=== PATIENT | female | born 1935 | race Caucasian/White ===

== ENCOUNTER 2016-10-06 10:54 | Inpatient (IN) | payer OTHER ==
[~2016-10-06] VITALS: Ht 170.2 cm; Wt 72.6 kg
[~2016-10-06 10:54] MED LIST: ASPI-1063 PO; ATEN-41 PO; GLIP2.5T3 PO; INDA2.5T5 PO; LISI-600 PO; LOVA20TA2 PO; METF-510 PO; SYN75 PO
[2016-10-06 11:08] VITALS: BP 143/86; PULSE 87; RESP 15; TEMP 98; O2SAT 99
[2016-10-06] MEDS ORDERED: NS 500 ML IV SCH (11:40)
[2016-10-06 12:05] LABS: BASOPHILS % (AUTO) 0.2 % (0.0-2.0); EOSINOPHILS % (AUTO) 0.1 % (0.0-4.0); HEMOGLOBIN 12.8 g/dL (12.0-16.0); LYMPHOCYTES # (AUTO) 1.1 K/uL (1.0-5.5); LYMPHOCYTES % (AUTO) 14.8 % (20.5-51.5); MEAN CORPUSCULAR HEMOGLOBIN 32 pg (27-31); MEAN CORPUSCULAR HGB CONC 35 % (32-36); MEAN CORPUSCULAR VOLUME 93 fL (79.0-98.0); MONOCYTES # (AUTO) 0.3 K/uL (0.0-1.0); MONOCYTES % (AUTO) 4.1 % (1.7-9.3); NEUTROPHILS # (AUTO) 6.3 K/uL (1.8-7.7); NEUTROPHILS % (AUTO) 80.8 % (40.0-70.0); PLATELET COUNT (AUTO) 238 K/uL (130-430); RED BLOOD CELL COUNT(AUTO) 3.97 MIL/uL (4.2-6.2); RED CELL DISTRIBUTION WIDTH 13.4 % (9.0-15.0); WHITE BLOOD COUNT (AUTO) 7.7 K/uL (4.8-10.8)
[2016-10-06 12:17] LABS: ANION GAP 9 (5-15); CALCIUM 9.2 mg/dL (8.4-11.0); CHLORIDE 97 mmol/L (98-107); CREATININE 1.12 mg/dL (0.55-1.30); GLUCOSE 307 mg/dL (70-99); POTASSIUM 4.1 mmol/L (3.5-5.1); SODIUM SERUM 134 mmol/L (136-145); UREA NITROGEN, BLOOD 19 mg/dL (8-21)
[2016-10-06 12:25] LABS: ALANINE AMINOTRANSFERASE 16 U/L (12-78); ALBUMIN 3.7 g/dL (3.4-4.8); ASPARTATE AMINOTRANSFERASE 15 U/L (10-37); TOTAL BILIRUBIN 0.6 mg/dL (0.0-1.0); TOTAL PROTEIN, SERUM 8.1 g/dL (6.4-8.3)
[2016-10-06] MEDS: 0.45% NACL 1,000 ML IV SCH (13:45)
[2016-10-06 16:00] VITALS: BP 128/54; PULSE 94; RESP 18; TEMP 97.1; O2SAT 96
[2016-10-06] MEDS ORDERED: GLUCOSE 15 GM GEL (in 37.5 GM TUBE) PO PRN ×2 (16:15)
[2016-10-06] MEDS ORDERED: DEXTROSE 50%-WATER 50 ML DISP.SYRIN IVP PRN ×2 (16:15)
[2016-10-06 17:21] LABS: HEMATOCRIT 34.5 % (36-48); HEMOGLOBIN 11.9 g/dL (12.0-16.0)
[2016-10-06 20:00] VITALS: BP 148/82; PULSE 74; RESP 18; TEMP 99; O2SAT 96
[2016-10-06] MEDS ORDERED: INSULIN REGULAR, HUMAN 100 UNITS/ML, 10 ML VIAL (novoLIN R) SUBCUT PRN (20:15)
[2016-10-06] MEDS: SIMVASTATIN 10 MG TABLET PO SCH (20:57)
[2016-10-06] MEDS: INSULIN ASPART 100 UNITS/ML, 10 ML VIAL (NovoLOG) SUBCUT PRN (20:59)
[2016-10-06] MEDS: PANTOPRAZOLE SODIUM 40 MG/VIAL (PROTONIX) IVP SCH (21:49)
[2016-10-06] MEDS ORDERED: BISACODYL 5 MG TABLET.DR (DULCOLAX) PO ONE (22:45)
[2016-10-06] MEDS ORDERED: GOLYTELY / COLYTE SOLUTION 4 LITERS PO ONE (22:45)
[2016-10-06] MEDS ORDERED: MAGNESIUM CITRATE 300 ML ORAL SOLUTION PO ONE (23:15)
[2016-10-06] MEDS ORDERED: POLYETHYLENE GLYCOL 3350, 17 GM/ POWD.PACK PO SCH (23:15)
[2016-10-07] VITALS (7 sets, daily range): BP systolic 134–176; BP diastolic 70–102; PULSE 73–155; RESP 16–20; TEMP 97.3–98.8; O2SAT 95–98
[2016-10-07] MEDS ORDERED: SORBITOL 70% SOLUTION, 30 ML UDBTL PO SCH
[2016-10-07] MEDS ORDERED: GOLYTELY / COLYTE SOLUTION 4 LITERS PO ONE ×2 (00:45→18:00)
[2016-10-07] MEDS: 0.45% NACL 1,000 ML IV SCH ×2 (05:31→16:13)
[2016-10-07] MEDS: LEVOTHYROXINE SODIUM 0.075 MG TABLET PO SCH (06:22)
[2016-10-07] MEDS: INSULIN ASPART 100 UNITS/ML, 10 ML VIAL (NovoLOG) SUBCUT PRN ×2 (06:39→21:08)
[2016-10-07] MEDS: PANTOPRAZOLE SODIUM 40 MG/VIAL (PROTONIX) IVP SCH ×2 (08:22→23:36)
[2016-10-07 08:23] LABS: ANION GAP 7 (5-15); CALCIUM 8.7 mg/dL (8.4-11.0); CHLORIDE 99 mmol/L (98-107); CREATININE 0.89 mg/dL (0.55-1.30); GLUCOSE 249 mg/dL (70-99); POTASSIUM 3.4 mmol/L (3.5-5.1); SODIUM SERUM 137 mmol/L (136-145); UREA NITROGEN, BLOOD 13 mg/dL (8-21)
[2016-10-07 08:27] LABS: INR 1.1 (0.8-1.2); PROTHROMBIN TIME 11.7 SECS (9.5-12.5)
[2016-10-07] MEDS ORDERED: hydrALAZINE HCL 20 MG/ML VIAL IVP PRN (08:30)
[2016-10-07] MEDS: ATENOLOL 25 MG TABLET(TENORMIN) PO SCH (08:52)
[2016-10-07] MEDS: LISINOPRIL 20 MG TABLET PO SCH (08:52)
[2016-10-07] MEDS ORDERED: COMMUNICATION ORDER XX ONE (10:15)
[2016-10-07] MEDS ORDERED: KCL 20 mEq in 100 mL (PREMIX) 100 ML IV ONE (10:15)
[2016-10-07] MEDS ORDERED: POTASSIUM CHLORIDE 10 MEQ TAB.PRT.SR PO ONE (10:30)
[2016-10-07] MEDS ORDERED: MIDAZOLAM HCL 5 MG/5 ML VIAL ONE (11:00)
[2016-10-07] MEDS ORDERED: SIMETHICONE 40 MG/0.6 ML ML ONE (11:01)
[2016-10-07] MEDS: MIDAZOLAM HCL 5 MG/5 ML VIAL ONE ×5 (11:15→11:29)
[2016-10-07] MEDS: fentaNYL CITRATE/PF 100 MCG/2 ML AMP ONE ×4 (11:15→11:27)
[2016-10-07 16:36] LABS: HEMATOCRIT 32.2 % (36-48)
[2016-10-07] MEDS ORDERED: BISACODYL 5 MG TABLET.DR (DULCOLAX) PO ONE (17:00)
[2016-10-07] MEDS: SIMVASTATIN 10 MG TABLET PO SCH (21:05)
[2016-10-07] MEDS ORDERED: ATENOLOL 25 MG TABLET(TENORMIN) PO ONE (22:00)
[2016-10-07] MEDS ORDERED: ACETAMINOPHEN 325 MG TABLET PO PRN (22:00)
[2016-10-07] MEDS ORDERED: CARV6.2554 PO (22:35)
[2016-10-07] MEDS ORDERED: LEVO88TA5 PO (22:35)
[2016-10-08] VITALS: BP 128/76; PULSE 64; RESP 21; TEMP 98.9; O2SAT 95
[2016-10-08 04:46] VITALS: BP 146/83; PULSE 61; RESP 18; TEMP 97.4; O2SAT 97
[2016-10-08] MEDS: 0.45% NACL 1,000 ML IV SCH ×2 (05:45→12:29)
[2016-10-08] MEDS: LEVOTHYROXINE SODIUM 0.075 MG TABLET PO SCH (06:13)
[2016-10-08] MEDS: INSULIN ASPART 100 UNITS/ML, 10 ML VIAL (NovoLOG) SUBCUT PRN ×4 (06:14→21:32)
[2016-10-08 07:25] LABS: BASOPHILS % (AUTO) 0.4 % (0.0-2.0); EOSINOPHILS % (AUTO) 0.4 % (0.0-4.0); HEMATOCRIT 33.2 % (36-48); HEMOGLOBIN 11.2 g/dL (12.0-16.0); LYMPHOCYTES # (AUTO) 1.7 K/uL (1.0-5.5); LYMPHOCYTES % (AUTO) 23.5 % (20.5-51.5); MEAN CORPUSCULAR HEMOGLOBIN 32 pg (27-31); MEAN CORPUSCULAR HGB CONC 34 % (32-36); MEAN CORPUSCULAR VOLUME 95 fL (79.0-98.0); MONOCYTES # (AUTO) 0.6 K/uL (0.0-1.0); MONOCYTES % (AUTO) 8.4 % (1.7-9.3); NEUTROPHILS # (AUTO) 4.8 K/uL (1.8-7.7); NEUTROPHILS % (AUTO) 67.3 % (40.0-70.0); PLATELET COUNT (AUTO) 212 K/uL (130-430); RED BLOOD CELL COUNT(AUTO) 3.52 MIL/uL (4.2-6.2); RED CELL DISTRIBUTION WIDTH 13.5 % (9.0-15.0); WHITE BLOOD COUNT (AUTO) 7.1 K/uL (4.8-10.8)
[2016-10-08 07:38] LABS: ANION GAP 7 (5-15); CALCIUM 9.1 mg/dL (8.4-11.0); CHLORIDE 101 mmol/L (98-107); CREATININE 0.98 mg/dL (0.55-1.30); GLUCOSE 179 mg/dL (70-99); POTASSIUM 3.6 mmol/L (3.5-5.1); SODIUM SERUM 139 mmol/L (136-145); UREA NITROGEN, BLOOD 10 mg/dL (8-21)
[2016-10-08] MEDS: ATENOLOL 25 MG TABLET(TENORMIN) PO SCH (09:00)
[2016-10-08] MEDS: PANTOPRAZOLE SODIUM 40 MG/VIAL (PROTONIX) IVP SCH (09:05)
[2016-10-08] MEDS: LISINOPRIL 20 MG TABLET PO SCH (11:52)
[2016-10-08 12:00] VITALS: BP 149/76; PULSE 62; RESP 16; TEMP 97.8; O2SAT 95
[2016-10-08 16:00] VITALS: BP 144/81; PULSE 54; RESP 18; TEMP 97.1; O2SAT 96
[2016-10-08 16:05] LABS: HEMATOCRIT 31.1 % (36-48); HEMOGLOBIN 10.4 g/dL (12.0-16.0)
[2016-10-08] MEDS: CLARITHROMYCIN 500 MG TABLET PO SCH (21:19)
[2016-10-08] MEDS: PANTOPRAZOLE SODIUM 40 MG TAB PO SCH (21:20)
[2016-10-08] MEDS: SIMVASTATIN 10 MG TABLET PO SCH (21:21)
[2016-10-08] MEDS: CARVEDILOL 6.25 MG TABLET (COREG) PO SCH (21:21)
[2016-10-09 01:12] VITALS: BP 132/63; PULSE 66; RESP 18; TEMP 98; O2SAT 97
[2016-10-09] MEDS: 0.45% NACL 1,000 ML IV SCH (02:31)
[2016-10-09 06:05] VITALS: BP 150/74; PULSE 65; RESP 20; TEMP 98.6; O2SAT 96
[2016-10-09] MEDS ORDERED: LEVOTHYROXINE SODIUM 0.088 MG TABLET PO SCH (07:00)
[2016-10-09] MEDS: LEVOTHYROXINE SODIUM 0.075 MG TABLET PO SCH (07:00)
[2016-10-09] MEDS: INSULIN ASPART 100 UNITS/ML, 10 ML VIAL (NovoLOG) SUBCUT PRN ×2 (07:02→12:21)
[2016-10-09 07:39] LABS: HEMATOCRIT 31.9 % (36-48); HEMOGLOBIN 10.8 g/dL (12.0-16.0)
[2016-10-09] MEDS: PANTOPRAZOLE SODIUM 40 MG TAB PO SCH (09:59)
[2016-10-09] MEDS: CLARITHROMYCIN 500 MG TABLET PO SCH (09:59)
[2016-10-09] MEDS: CARVEDILOL 6.25 MG TABLET (COREG) PO SCH (09:59)
[2016-10-09] MEDS: LISINOPRIL 20 MG TABLET PO SCH (10:00)
[2016-10-09 12:00] VITALS: BP 132/75; PULSE 74; RESP 21; TEMP 97.3; O2SAT 96
[2016-10-09 13:44] VITALS: BP 130/68; PULSE 78; RESP 20; TEMP 98.6; O2SAT 98
== END 2016-10-09 14:55 | disposition home or self-care (01) | DRG 378 ==
LOC: SED 10:54 → STU 13:32 → SMU 10-08 11:56
PROVIDERS: ADMIT Internal Medicine; ATTEND Internal Medicine
PROC: 0DB98ZX Excision of Duodenum, Via Natural or Artificial Opening Endoscopic, Diagnostic (ICD-10-PCS; principal; 2016-10-06)
PROC: 0DB68ZX Excision of Stomach, Via Natural or Artificial Opening Endoscopic, Diagnostic (ICD-10-PCS; 2016-10-06)
PROC: BD14YZZ Fluoroscopy of Colon using Other Contrast (ICD-10-PCS; 2016-10-06)
DX: K57.93 Diverticulitis of intestine, part unspecified, without perforation or abscess with bleeding (principal); D68.69 Other thrombophilia; K29.40 Chronic atrophic gastritis without bleeding; I48.91 Unspecified atrial fibrillation; E11.9 Type 2 diabetes mellitus without complications; I10 Essential (primary) hypertension; E78.5 Hyperlipidemia, unspecified; B96.81 Helicobacter pylori [H. pylori] as the cause of diseases classified elsewhere; D64.9 Anemia, unspecified; E03.9 Hypothyroidism, unspecified; Z66 Do not resuscitate; Z82.3 Family history of stroke; Z80.0 Family history of malignant neoplasm of digestive organs; Z90.49 Acquired absence of other specified parts of digestive tract; Z88.0 Allergy status to penicillin; Z88.6 Allergy status to analgesic agent; Z88.1 Allergy status to other antibiotic agents; Z88.2 Allergy status to sulfonamides; Z79.82 Long term (current) use of aspirin; Z79.899 Other long term (current) drug therapy; T50.995A Adverse effect of other drugs, medicaments and biological substances, initial encounter
CPT/HCPCS: 36415; 43239; 74270-TC; 78278-TC; 80048; 80053; 82272; 82962; 85018-TC; 85025; 85610-TC; 85730-TC; 86886; 86900; 86901; 87081; 88305; 88312; 93005; 99291; A9560; C9113; J0360; J2250; J3010; J3480

== ENCOUNTER 2016-11-05 10:49 | Inpatient (IN) | payer OTHER ==
[~2016-11-05] VITALS: Ht 170.2 cm; Wt 69.9 kg
[~2016-11-05 10:49] MED LIST changes: +CARV6.2554 PO; +LEVO88TA5 PO
[2016-11-05 10:51] VITALS: BP 116/63; PULSE 85; RESP 18; TEMP 97.7; O2SAT 96
--- NOTE | 2016-11-05 10:59 | NUR ---
Pt placed to ER bed 02 and to gown. Pt report given to BRIEN Arzola.
--- NOTE | 2016-11-05 11:05 | NUR ---
Pt placed to ER bed 06.
--- NOTE | 2016-11-05 11:06 | NUR ---
Patient in stable condition, alert and oriented x4. States that has had right posterior rib pain and neck soreness for four days. Full range of motion noted to neck. Denies photophobia or headache. Denies nausea vomiting. Denies trauma/injury. No other complaints/injuries per patient or noted.
--- NOTE | 2016-11-05 11:35 | NUR ---
Dr. Rico at bedside
[2016-11-05 12:11] LABS: BASOPHILS % (AUTO) 0.2 % (0.0-2.0); EOSINOPHILS % (AUTO) 0.1 % (0.0-4.0); HEMATOCRIT 33.8 % (36-48); HEMOGLOBIN 11.5 g/dL (12.0-16.0); LYMPHOCYTES # (AUTO) 1.2 K/uL (1.0-5.5); LYMPHOCYTES % (AUTO) 13.5 % (20.5-51.5); MEAN CORPUSCULAR HEMOGLOBIN 31 pg (27-31); MEAN CORPUSCULAR HGB CONC 34 % (32-36); MEAN CORPUSCULAR VOLUME 92 fL (79.0-98.0); MONOCYTES # (AUTO) 0.4 K/uL (0.0-1.0); MONOCYTES % (AUTO) 4.8 % (1.7-9.3); NEUTROPHILS # (AUTO) 7.3 K/uL (1.8-7.7); NEUTROPHILS % (AUTO) 81.4 % (40.0-70.0); PLATELET COUNT (AUTO) 298 K/uL (130-430); RED BLOOD CELL COUNT(AUTO) 3.68 MIL/uL (4.2-6.2); RED CELL DISTRIBUTION WIDTH 12.7 % (9.0-15.0); WHITE BLOOD COUNT (AUTO) 8.9 K/uL (4.8-10.8)
[2016-11-05 12:21] LABS: BILIRUBIN,URINE NEGATIVE (NEGATIVE); BLOOD, URINE 1+ (NEGATIVE); COLOR,URINE YELLOW (YELLOW); GLUCOSE,URINE 2+ (NEGATIVE); KETONES,URINE NEGATIVE (NEGATIVE); LEUKOCYTE ESTERASE ,URINE NEGATIVE (NEGATIVE); NITRITE, URINE NEGATIVE (NEGATIVE); PROTEIN URINE 2+ (NEGATIVE); UROBILINOGEN,URINE 0.2 (0.2-1.0)
[2016-11-05 12:22] LABS: PROTHROMBIN TIME 11.2 SECS (9.5-12.5)
[2016-11-05 12:24] LABS: ANION GAP 11 (5-15); CALCIUM 9.3 mg/dL (8.4-11.0); CHLORIDE 96 mmol/L (98-107); CREATININE 1.63 mg/dL (0.55-1.30); POTASSIUM 3.7 mmol/L (3.5-5.1); SODIUM SERUM 133 mmol/L (136-145); UREA NITROGEN, BLOOD 31 mg/dL (8-21)
[2016-11-05 12:24] LABS: CLARITY/URINE SLIGHTLY HAZY (CLEAR)
[2016-11-05 12:30] LABS: GLUCOSE 466 mg/dL (70-99)
[2016-11-05 12:35] LABS: TOTAL BILIRUBIN 0.4 mg/dL (0.0-1.0)
[2016-11-05 12:36] LABS: ALANINE AMINOTRANSFERASE 17 U/L (12-78); ALBUMIN 3.7 g/dL (3.4-4.8); ASPARTATE AMINOTRANSFERASE 11 U/L (10-37); TOTAL PROTEIN, SERUM 7.8 g/dL (6.4-8.3)
[2016-11-05 12:56] LABS: BACTERIA,URINE RARE /HPF (None Seen); MUCUS,URINE 1+ /LPF (None Seen); WBC,URINE 0-3 /HPF (0-3)
--- NOTE | 2016-11-05 13:00 | NUR ---
Patient in stable condition, no chest pain, pressure or radiating pain per patient.
[2016-11-05] MEDS ORDERED: IBUPROFEN 600 MG TABLET PO ONE (13:15)
--- NOTE | 2016-11-05 13:25 | NUR ---
Suzanne to in [facility] - 11/05/16 at 1550 by PENNY No medications for blood sugar at this time per
--- NOTE | 2016-11-05 13:26 | NUR ---
Medication reconciliation completed with information provided by patient. Any prior medication reconciliation on file was reviewed and corrected.
[2016-11-05] MEDS ORDERED: INSULIN REGULAR, HUMAN 10 UNITS/0.1 ML INJ IVP ONE (13:30)
[2016-11-05] MEDS ORDERED: POTASSIUM CHLORIDE 20 MEQ TAB.PRT.SR PO ONE (13:30)
[2016-11-05] MEDS ORDERED: MORPHINE 2 MG/ML INJ. SYRINGE IVP PRN ×2 (13:45→20:15)
[2016-11-05] MEDS ORDERED: HYDROcodone/ACETAMIN 10-325 MG TAB PO PRN (13:45)
[2016-11-05] MEDS ORDERED: ONDANSETRON HCL 4 MG/2 ML VIAL IVP PRN (13:45)
[2016-11-05] MEDS ORDERED: ACETAMINOPHEN 325 MG TABLET PO PRN (13:45)
[2016-11-05] MEDS ORDERED: MAGNESIUM CITRATE 300 ML ORAL SOLUTION PO ONE (13:45)
--- NOTE | 2016-11-05 13:50 | NUR ---
# 20 gauge angiocath placed to R FA. Use of asceptic technique. Opsite placed over site. Blood return noted. Flushed with 10 cc of normal saline. No evidence of infiltration noted. Patient tolerated well.
[2016-11-05] MEDS ORDERED: ASPIRIN 81 MG TAB.CHEW PO ONE ×2 (15:00→16:00)
--- NOTE | 2016-11-05 15:00 | NUR ---
2d echo being completed at bedside
--- NOTE | 2016-11-05 15:30 | NUR ---
Admitted to tele unit. Will go to room 116A. Summary report printed. Report given to Cecile TESFAYE at bedside.
--- NOTE | 2016-11-05 15:31 | NUR ---
ADMISSION NOTE Received patient from ER via gurney. Patient admitted with diagnosis of Elevated troponin . Patient is awake, alert, oriented X 4. Patient oriented to hospital room, call light, toileting, pain management and safety-teach back done. Patient informed that Lorie will be her nurse and that their room number is 116A. Personal belongings checked and Belongings List documented. Call light within reach.
[2016-11-05] MEDS: NACL 0.9% 1,000 ML IV SCH ×2 (15:44→16:28)
[2016-11-05 16:20] VITALS: BP 131/63; PULSE 80; RESP 19; TEMP 97; O2SAT 96
[2016-11-05] MEDS: LACTULOSE 20 GM/30 ML UDC PO SCH ×2 (16:27→17:00)
--- NOTE | 2016-11-05 16:30 | NUR ---
PT SITTING IN BED, FAMILY AT BEDSIDE, NO S/S OF DISTRESS OR DISCOMFORT AT THIS TIME, PT NEEDS ATTENDED TO, CALL LIGHT WITHIN REACH, BED IN LOW POSITION, WILL FOLLOW UP.
[2016-11-05] MEDS: INSULIN NPH 100 UNITS/ML 10 ML VIAL SUBCUT SCH (16:50)
[2016-11-05] MEDS: INSULIN ASPART 100 UNITS/ML, 10 ML VIAL (NovoLOG) SUBCUT PRN ×2 (16:51→20:58)
--- NOTE | 2016-11-05 18:30 | NUR ---
CLOSING NOTE PT SITTING IN BED, COMPLAINS OF PAIN AT NECK AREA AND BACK, OFFERED PRN PAIN MEDICATION NORCO AND TYLENOL, PT REFUSED. PT A/O X4, STEADY GAIT NOTED BUT COMPLAINS OF FEELING WEAK. IV TO RIGHT AC, PATIENT, NO S/S OF INFILTRATION. BED IN LOW POSITION, SAFETY MEASURES IN PLACE, WILL ENDORSE CARE TO FOLLOWING SHIFT.
--- NOTE | 2016-11-05 18:41 | NUR ---
MD SHETTY CALLED [facility] AT [phone]NGUYEN LUNA CHIBAO UNDERCOLLAR MAKER.
[2016-11-05 20:00] VITALS: BP 121/71; PULSE 80; RESP 18; TEMP 97.2; O2SAT 98
--- NOTE | 2016-11-05 20:00 | NUR ---
Initial Notes Received patient sitting up in bed, awake, alert, oriented. Patient denies any distress or pain at this time, but complains of muscle tightness lower back, Dr. Avendaño on unit and made aware. Patient's breathing even and unlabored on room air. IV site patent/clean/dry. Educated patient on use of call light for assistance and fall precautions. Fall precautions in place, side rails up x2, bed lowest position, non-slip socks in use, call light in hand. Patient refusing bed alarm at this time, patient ambulating steady without assist. Needs addressed. Will continue to monitor.
[2016-11-05] MEDS ORDERED: HYDROcodone/ACETAMIN 5-325 MG TAB (NORCO/ VICODIN) PO PRN (20:15)
[2016-11-05] MEDS ORDERED: NITROGLYCERIN 0.4 MG TAB.SUBL SL PRN (20:15)
[2016-11-05] MEDS: CYCLOBENZAPRINE HCL 10 MG TABLET (FLEXERIL) PO PRN (20:52)
--- NOTE | 2016-11-05 21:14 | NUR ---
DIETARY CONSULT MADE CALLED EXT [id number] LEFT VOICEMAIL FOR DIETARY CONSULT FOR TEACHING ABOUT DIABETES.
--- NOTE | 2016-11-05 22:00 | NUR ---
Rounds Patient resting in bed with eyes closed, easily aroused upon nurse entering room. Patient denies any acute distress or pain at this time. Breathing even and unlabored. Needs addressed. Call light in hand, fall precautions in place. Will continue to monitor.
[2016-11-06] VITALS (7 sets, daily range): BP systolic 112–140; BP diastolic 60–77; PULSE 69–77; RESP 16–21; TEMP 97–98.7; O2SAT 93–98
--- NOTE | 2016-11-06 00:10 | NUR ---
Rounds Patient resting in bed with eyes closed. No acute distress noted, breathing even and unlabored. Call light in hand, fall precautions in place. Will continue to monitor for changes and safety..
--- NOTE | 2016-11-06 02:04 | NUR ---
Notes Patient continue to be resting in bed with eyes closed. No distress noted, breathing even and unlabored. Call light in hand, fall precautions in place. Will continue to monitor.
--- NOTE | 2016-11-06 04:24 | NUR ---
Rounds Patient resting in bed, easily aroused. Patient denies any acute distress or pain. Breathing even and unlabored. Patient denies any needs at this time. Call light in hand, fall precautions in place. Will continue to monitor.
[2016-11-06] MEDS: INSULIN NPH 100 UNITS/ML 10 ML VIAL SUBCUT SCH ×2 (06:28→17:27)
[2016-11-06] MEDS: INSULIN ASPART 100 UNITS/ML, 10 ML VIAL (NovoLOG) SUBCUT PRN ×3 (06:29→17:29)
--- NOTE | 2016-11-06 06:37 | NUR ---
Closing Notes Patient resting in bed bed with eyes closed, easily aroused. Patient denies any acute distress or pain at this time. Breathing even and unlabored. IV site patent/clean/dry. Needs address throughout shift. Call light in hand, fall precautions in place. Will continue to monitor for changes and safety, and endorse all patient care/needs to oncoming nurse.
[2016-11-06 06:41] LABS: BASOPHILS % (AUTO) 0.6 % (0.0-2.0); EOSINOPHILS % (AUTO) 0.4 % (0.0-4.0); HEMATOCRIT 33.1 % (36-48); HEMOGLOBIN 10.8 g/dL (12.0-16.0); LYMPHOCYTES # (AUTO) 1.9 K/uL (1.0-5.5); LYMPHOCYTES % (AUTO) 29.3 % (20.5-51.5); MEAN CORPUSCULAR HEMOGLOBIN 30 pg (27-31); MEAN CORPUSCULAR HGB CONC 33 % (32-36); MEAN CORPUSCULAR VOLUME 92 fL (79.0-98.0); MONOCYTES # (AUTO) 0.5 K/uL (0.0-1.0); MONOCYTES % (AUTO) 7.9 % (1.7-9.3); NEUTROPHILS % (AUTO) 61.8 % (40.0-70.0); PLATELET COUNT (AUTO) 311 K/uL (130-430); RED BLOOD CELL COUNT(AUTO) 3.59 MIL/uL (4.2-6.2); RED CELL DISTRIBUTION WIDTH 12.8 % (9.0-15.0); WHITE BLOOD COUNT (AUTO) 6.4 K/uL (4.8-10.8)
[2016-11-06 07:02] LABS: ANION GAP 5 (5-15); CALCIUM 9.3 mg/dL (8.4-11.0); CHLORIDE 104 mmol/L (98-107); CHOLESTEROL 135 mg/dL (<200); CREATININE 1.06 mg/dL (0.55-1.30); GLUCOSE 173 mg/dL (70-99); HDL CHOLESTEROL 75 mg/dL (>55); LDL CHOLESTEROL 50 mg/dL (<100); PHOSPHORUS 2.9 mg/dL (2.7-4.5); POTASSIUM 3.6 mmol/L (3.5-5.1); SODIUM SERUM 139 mmol/L (136-145); TRIGLYCERIDES 36 mg/dL (30-150); UREA NITROGEN, BLOOD 20 mg/dL (8-21)
--- NOTE | 2016-11-06 08:33 | NUR ---
Initial Note Patient A/O x4. Respirations even and unlabored. IV access patent. Denies chest pain and generalized discomfort at this time.Use of call light reviewed with patient. Patient stated she uses a walker at home, but has a steady gait. Bed in lowest and locked position. Fall and safety precautions in place. Encouraged patient to call for assistance, patient acknowledged understanding.
[2016-11-06] MEDS ORDERED: ASPIRIN 81 MG TAB.CHEW PO SCH (09:00)
--- NOTE | 2016-11-06 09:58 | NUR ---
alert, indep adls. lives with son. has walker and cane. anticipate home when medically stable/dipti rn/ayse/rafa hcp [phone]
[2016-11-06] MEDS: CYCLOBENZAPRINE HCL 10 MG TABLET (FLEXERIL) PO PRN (10:01)
--- NOTE | 2016-11-06 10:16 | NUR ---
Notes Dr. Sim has been made aware of elevated troponin. No new orders given at this time.
--- NOTE | 2016-11-06 14:43 | NUR ---
Notes Patient requested for female staff member to perform tap water enema. 600 ml administered initially, patient evacuated very quickly. Second attempt patient was able to tolerate 800 ml and kept tap water in for longer amount of time before being assisted to bedside commode. Output was clear.
--- NOTE | 2016-11-06 15:57 | NUR ---
Notes Patient denies discomfort. Resting in bed.
--- NOTE | 2016-11-06 16:24 | NUR ---
Nutrition Note Verbal Nutrition Consult received from RN -- DM Teaching. Labs: BG 173 H, POC BG 363 H, pending A1C Meds: Lactulose, synthroid, novolin N, SSI, zofran, glucophage, glucotrol RD met up with pt at bedside. Pt reported that her appetite is good so far, no issues, but she has a small appetite. Pt stated that she cooks a lot at home, does not use insulin at home, only on metformin and glipizide. Pt also stated that she attended diabetic counseling class at [facility] 10 years ago but do have a lot of diabetic cookbooks and medical books at home that helps her to understand diabetes better. RD inquired with pt the basics of [facility] diet, pt stated she watches her portion sizes and does not drink sodas and does not eat potatoes. RD reviewed [facility] diet/MNT with pt, explained diet parameters thoroughly, discussed portion control, snack options, carb counting, and handouts provided. Pt receptive to education, and verbalizes understanding of diet. RD to follow up per nutrition care standards.
[2016-11-06] MEDS ORDERED: glipiZIDE XL 2.5 MG/TAB (GLUCOTROL XL) PO SCH (17:00)
[2016-11-06] MEDS ORDERED: LACTULOSE 20 GM/30 ML UDC PO PRN (17:00)
[2016-11-06] MEDS ORDERED: LANCET FS (18:23)
[2016-11-06] MEDS ORDERED: LACT10SO66 PO (18:23)
[2016-11-06] MEDS ORDERED: GLUCOMETER FS (18:23)
--- NOTE | 2016-11-06 18:41 | NUR ---
Notes Spoke with Dr. Avendaño, verified e-prescription of Lactulose, glucometer, and lancets. No insulin order was given.
--- NOTE | 2016-11-06 19:30 | NUR ---
Initial Notes Received patient sitting up in bed, awake, alert, oriented, family at bedside. Patient denies any acute distress or pain at this time. Breathing even and unlabored. Vital signs stable. Educated patient on orders for discharge and to follow up with PCP on friday for glucose check per MD order, patient and family verbalized understanding. Educated patient to use call light for assistance. Will complete discharge paperwork.
--- NOTE | 2016-11-06 19:30 | NUR ---
Closing Notes Diabetic teaching reviewed with patient. Patient stated she currently pricks her finger to monitor blood glucose throughout the day at home as her current medication regimen. Informed patient on need to follow-up by Friday with her primary care provider per Dr. Avendaño's instructions. Son and daughter stated they will. Patient is aware insulin was not added to her current medications and e-prescription was sent to her preferred pharmacy [facility]. Complaint of pain was addressed early during shift and pain was tolerable throughout shift per patient's statement. Patient care has been endorsed to oncoming shift nurse.
--- NOTE | 2016-11-06 20:15 | NUR ---
Patient awaiting ride for discharge home. Discharge instructions and paperwork given to patient, copies placed in charge. Patient dressed and belongings with patient. Patient stated her son had to go home while paperwork was being completed, and he has been called to pick patient up. Awaiting for transportation via personal auto.
[2016-11-06] MEDS ORDERED: LOVASTATIN 20 MG TABLET PO SCH (21:00)
[2016-11-06] MEDS ORDERED: CARVEDILOL 6.25 MG TABLET (COREG) PO SCH (21:00)
[2016-11-06] MEDS ORDERED: SIMVASTATIN 10 MG TABLET PO SCH (21:00)
--- NOTE | 2016-11-06 21:05 | NUR ---
Patient discharged home via person auto. Patient off unit at 2105 via wheelchair, accompanied by Stanley, patient's son. All discharge paperwork and personal belongings with patient. Patient and family verbalized understanding of prescriptions sent to [facility] pharmacy by .
[2016-11-07] MEDS ORDERED: LEVOTHYROXINE SODIUM 0.075 MG TABLET PO SCH (07:00)
[2016-11-07] MEDS ORDERED: LEVOTHYROXINE SODIUM 0.088 MG TABLET PO SCH (07:00)
[2016-11-07] MEDS ORDERED: LISINOPRIL 20 MG TABLET PO SCH (09:00)
[2016-11-07] MEDS ORDERED: INDAPAMIDE 1.25 MG TABLET PO SCH (09:00)
--- NOTE | 2016-11-07 12:30 | NUR ---
Discharge Follow Up Phone Call [employer] DEVELOP[employer] OFFICER phoned patient, . Patient stated she was doing about the same. She was still having pain in her back. Patient filled her prescriptions and is using her glucometer as directed. Her sugar was 277 this am. Patient made good food choices for breakfast and is trying to follow guidelines given to her by the RD. Patient has a follow up appointment with her PCP today. She will discuss sugars and further glucometer education, nutrition education and the possibility of probiotics. COMM[employer] DEVELOP[employer] OFFICER encouraged patient to write a list of what she would like to discuss with PCP. Patient believes the increased problem with her BS started with her recent use of antibiotics. Patient has no further questions or concerns.
[2017-04-05] MEDS ORDERED: ASPIRIN 81 MG TAB.CHEW PO SCH (09:00)
== END 2016-11-06 21:05 | disposition home or self-care (01) | DRG 552 ==
LOC: SED 10:49 → STU 13:44
PROVIDERS: ADMIT Internal Medicine; ATTEND Internal Medicine
DX: M54.9 Dorsalgia, unspecified (principal); N17.9 Acute kidney failure, unspecified; E11.65 Type 2 diabetes mellitus with hyperglycemia; E86.0 Dehydration; E03.9 Hypothyroidism, unspecified; N18.9 Chronic kidney disease, unspecified; I12.9 Hypertensive chronic kidney disease with stage 1 through stage 4 chronic kidney disease, or unspecified chronic kidney disease; E11.22 Type 2 diabetes mellitus with diabetic chronic kidney disease; K57.90 Diverticulosis of intestine, part unspecified, without perforation or abscess without bleeding; E78.5 Hyperlipidemia, unspecified; Z96.653 Presence of artificial knee joint, bilateral; Z90.49 Acquired absence of other specified parts of digestive tract; Z90.710 Acquired absence of both cervix and uterus; Z88.1 Allergy status to other antibiotic agents; Z88.5 Allergy status to narcotic agent; Z88.2 Allergy status to sulfonamides; Z79.82 Long term (current) use of aspirin; Z79.899 Other long term (current) drug therapy; I48.0 Paroxysmal atrial fibrillation; K59.00 Constipation, unspecified; M54.2 Cervicalgia
CPT/HCPCS: 36415; 71010; 74000-TC; 76770; 80048; 80053; 80061; 81000-TC; 82962; 83036; 83735-TC; 83880; 84100-TC; 84484; 85025; 85610-TC; 87081; 93005; 93306; 96374; 99285; J1815; J7030

== ENCOUNTER 2017-10-11 04:25 | Emergency (ER) | payer OTHER ==
[~2017-10-11] VITALS: Ht 167.6 cm; Wt 76.2 kg
[~2017-10-11 04:25] MED LIST changes: -ATEN-41 PO; +GLUCOMETER FS; +LACT10SO66 PO; +LANCET FS; -SYN75 PO
[2017-10-11 04:32] VITALS: BP_SYST 191
[2017-10-11] MEDS ORDERED: KETOROLAC TROMETHAMINE 30 MG VIAL IVP ONE (05:00)
[2017-10-11 05:29] LABS: BASOPHILS % (AUTO) 0.4 % (0.0-2.0); EOSINOPHILS % (AUTO) 0.1 % (0.0-4.0); HEMATOCRIT 35.2 % (36-48); HEMOGLOBIN 11.2 g/dL (12.0-16.0); LYMPHOCYTES # (AUTO) 1.4 K/uL (1.0-5.5); LYMPHOCYTES % (AUTO) 17.4 % (20.5-51.5); MEAN CORPUSCULAR HEMOGLOBIN 28 pg (27-31); MEAN CORPUSCULAR HGB CONC 32 % (32-36); MEAN CORPUSCULAR VOLUME 87 fL (79.0-98.0); MONOCYTES # (AUTO) 0.5 K/uL (0.0-1.0); MONOCYTES % (AUTO) 6.2 % (1.7-9.3); NEUTROPHILS # (AUTO) 6.1 K/uL (1.8-7.7); NEUTROPHILS % (AUTO) 75.9 % (40.0-70.0); PLATELET COUNT (AUTO) 279 K/uL (130-430); RED BLOOD CELL COUNT(AUTO) 4.03 MIL/uL (4.2-6.2)
[2017-10-11 05:40] LABS: INR 1.1 (0.8-1.2); PROTHROMBIN TIME 11.2 SECS (9.5-12.5)
[2017-10-11 05:40] LABS: BILIRUBIN,URINE NEGATIVE (NEGATIVE); BLOOD, URINE 1+ (NEGATIVE); CLARITY/URINE CLEAR (CLEAR); COLOR,URINE YELLOW (YELLOW); GLUCOSE,URINE NEGATIVE (NEGATIVE); KETONES,URINE NEGATIVE (NEGATIVE); LEUKOCYTE ESTERASE ,URINE TRACE (NEGATIVE); NITRITE, URINE NEGATIVE (NEGATIVE); PROTEIN URINE 2+ (NEGATIVE); UROBILINOGEN,URINE 0.2 (0.2-1.0)
[2017-10-11 05:46] LABS: BACTERIA,URINE FEW /HPF (None Seen); TRICHOMONAS,URINE Few /HPF (None Seen)
[2017-10-11 06:00] LABS: SODIUM SERUM 138 mmol/L (136-145)
[2017-10-11 06:01] LABS: ALANINE AMINOTRANSFERASE 17 U/L (12-78); ALBUMIN 3.9 g/dL (3.4-4.8); ANION GAP 10 (5-15); ASPARTATE AMINOTRANSFERASE 14 U/L (10-37); CALCIUM 9.8 mg/dL (8.4-11.0); CHLORIDE 101 mmol/L (98-107); CREATININE 1.22 mg/dL (0.55-1.30); GLUCOSE 157 mg/dL (70-99); POTASSIUM 3.4 mmol/L (3.5-5.1); TOTAL BILIRUBIN 0.4 mg/dL (0.0-1.0); UREA NITROGEN, BLOOD 24 mg/dL (8-21)
[2017-10-11 08:07] VITALS: BP_SYST 135
== END 2017-10-11 08:07 | disposition home or self-care (01) ==
LOC: SED 04:25
DX: K59.00 Constipation, unspecified (principal); E11.9 Type 2 diabetes mellitus without complications; I10 Essential (primary) hypertension; E78.5 Hyperlipidemia, unspecified; I48.91 Unspecified atrial fibrillation; Z88.2 Allergy status to sulfonamides; Z88.1 Allergy status to other antibiotic agents; Z88.5 Allergy status to narcotic agent
CPT/HCPCS: 36415; 71045; 74176; 80053; 81000; 84484; 85025; 85610; 93005; 99285; J1885

== ENCOUNTER 2018-11-15 19:12 | Emergency (ER) | payer OTHER ==
[~2018-11-15] VITALS: Ht 165.1 cm; Wt 75.3 kg
[~2018-11-15 19:12] MED LIST changes: -ASPI-1063 PO; +ASPI-1153 PO
[2018-11-15 19:28] VITALS: BP_SYST 148
[2018-11-15] MEDS ORDERED: fentaNYL CITRATE/PF 100 MCG/2 ML AMP IVP ONE (20:00)
[2018-11-15] MEDS ORDERED: NACL 0.9% 1,000 ML IV ONE (20:00)
[2018-11-15 20:32] LABS: ANION GAP 9 (5-15); CALCIUM 8.7 mg/dL (8.4-11.0); CHLORIDE 103 mmol/L (98-107); CREATININE 1.56 mg/dL (0.55-1.30); GLUCOSE 231 mg/dL (70-99); POTASSIUM 3.6 mmol/L (3.5-5.1); SODIUM SERUM 141 mmol/L (136-145); UREA NITROGEN, BLOOD 28 mg/dL (8-21)
[2018-11-15 20:36] LABS: HEMATOCRIT 33.9 % (36-48); MEAN CORPUSCULAR HEMOGLOBIN 31 pg (27-31); MEAN CORPUSCULAR HGB CONC 33 % (32-36); MEAN CORPUSCULAR VOLUME 94 fL (79.0-98.0); WHITE BLOOD COUNT (AUTO) 6.9 K/uL (4.8-10.8)
[2018-11-15 20:37] LABS: ALANINE AMINOTRANSFERASE 17 U/L (12-78); ALBUMIN 3.3 g/dL (3.4-4.8); ASPARTATE AMINOTRANSFERASE 17 U/L (10-37); BASOPHILS % (AUTO) 0.5 % (0.0-2.0); LYMPHOCYTES # (AUTO) 0.9 K/uL (1.0-5.5); LYMPHOCYTES % (AUTO) 13.3 % (20.5-51.5); MONOCYTES # (AUTO) 0.6 K/uL (0.0-1.0); NEUTROPHILS # (AUTO) 5.4 K/uL (1.8-7.7); NEUTROPHILS % (AUTO) 78.2 % (40.0-70.0); PLATELET COUNT (AUTO) 210 K/uL (130-430); RED CELL DISTRIBUTION WIDTH 15.3 % (9.0-15.0); TOTAL BILIRUBIN 0.3 mg/dL (0.0-1.0)
[2018-11-15 21:00] LABS: PROTHROMBIN TIME 19.9 SECS (9.5-12.5)
[2018-11-15 22:32] VITALS: BP_SYST 133
== END 2018-11-15 22:20 | disposition home or self-care (01) ==
LOC: SED 19:12
DX: R04.0 Epistaxis (principal); J32.9 Chronic sinusitis, unspecified; E11.9 Type 2 diabetes mellitus without complications; I10 Essential (primary) hypertension; I48.91 Unspecified atrial fibrillation; E78.5 Hyperlipidemia, unspecified; Z90.49 Acquired absence of other specified parts of digestive tract; Z90.89 Acquired absence of other organs; Z88.1 Allergy status to other antibiotic agents; Z88.2 Allergy status to sulfonamides; Z88.5 Allergy status to narcotic agent; Z79.82 Long term (current) use of aspirin; Z79.899 Other long term (current) drug therapy
CPT/HCPCS: 36415; 70450; 80053; 85025; 85610; 85730; 99284; J3010; J7030; 93005

== ENCOUNTER 2018-11-17 11:42 | Emergency (ER) | payer OTHER ==
[~2018-11-17] VITALS: Ht 167.6 cm; Wt 64.4 kg
[2018-11-17 11:59] VITALS: BP_SYST 152
[2018-11-17] MEDS ORDERED: LIDOCAINE/EPI 1% 1:100000 20 ML VIAL INJ ONE ×2 (12:15→12:24)
[2018-11-17] MEDS ORDERED: SILVER NITRATE APPLICATOR 1 STICK STICK..EA. TP ONE (12:15)
[2018-11-17 14:05] VITALS: BP_SYST 137
== END 2018-11-17 14:05 | disposition home or self-care (01) ==
LOC: SED 11:42
DX: R04.0 Epistaxis (principal); E11.9 Type 2 diabetes mellitus without complications; I10 Essential (primary) hypertension; I48.91 Unspecified atrial fibrillation; E78.5 Hyperlipidemia, unspecified; Z88.2 Allergy status to sulfonamides; Z88.1 Allergy status to other antibiotic agents; Z88.5 Allergy status to narcotic agent; Z79.82 Long term (current) use of aspirin; Z79.899 Other long term (current) drug therapy
CPT/HCPCS: 99284

== ENCOUNTER 2018-11-19 01:50 | Emergency (ER) | payer OTHER ==
[~2018-11-19] VITALS: Ht 165.1 cm; Wt 73.5 kg
[2018-11-19 02:00] VITALS: BP_SYST 141
--- NOTE | 2018-11-19 02:00 | NUR ---
Patient to ER bed 7 to gown for evaluation. Side rails up. Report given to BRIEN Freitas.
--- NOTE | 2018-11-19 02:21 | NUR ---
ER at bedside examining patient.
--- NOTE | 2018-11-19 02:25 | NUR ---
Patient AOx4, brought to ER via ambulance BLS for complaint of left nostril nose bleed today. Patient states she was seen 2 nights ago for bleeding to right nostril. Right nostril was cauterized and packed at that time. Patient states lightheadedness. Patient states she went to sleep fine last night and woke up to blood all over her. Patient states she is on Warfarin for A-fib. Patient has a referral to see ENT next week. No other symptoms or complaints. Son at bedside.
[2018-11-19] MEDS ORDERED: OXYMETAZOLINE HCL 0.05% NASAL SPRAY NS ONE (02:30)
--- NOTE | 2018-11-19 03:21 | NUR ---
Caseo rocket packed into to left nostril by MD Ying.
[2018-11-19 03:42] VITALS: BP_SYST 131
--- NOTE | 2018-11-19 03:42 | NUR ---
Patient given written and verbal discharge instructions and verbalizes understanding. ER MD discussed with patient the results and treatment provided. Patient in stable condition. ID arm band removed. Rx of Holbrook 5/325 given. Patient educated on pain management and to follow up with PMD. Pain Scale 0/10. Opportunity for questions provided and answered. Medication side effect fact sheet provided.
== END 2018-11-19 03:42 | disposition home or self-care (01) ==
LOC: SED 01:50
DX: R04.0 Epistaxis (principal); E11.9 Type 2 diabetes mellitus without complications; I10 Essential (primary) hypertension; I48.91 Unspecified atrial fibrillation; E78.5 Hyperlipidemia, unspecified; Z86.73 Personal history of transient ischemic attack (TIA), and cerebral infarction without residual deficits; Z88.2 Allergy status to sulfonamides; Z88.1 Allergy status to other antibiotic agents; Z88.5 Allergy status to narcotic agent; Z79.82 Long term (current) use of aspirin; Z79.899 Other long term (current) drug therapy
CPT/HCPCS: 99283; 99284

== ENCOUNTER 2018-11-21 16:28 | Emergency (ER) | payer OTHER ==
[~2018-11-21] VITALS: Ht 165.1 cm; Wt 74.4 kg
[2018-11-21 16:49] VITALS: BP_SYST 131
--- NOTE | 2018-11-21 20:04 | NUR ---
Patient to ER bed 2 to gown for evaluation. Side rails up. Report given to ANDREI TESFAYE.
--- NOTE | 2018-11-21 20:15 | NUR ---
ER Dr. Blunt at bedside examining patient.
[2018-11-21] MEDS ORDERED: NACL 0.9% 1,000 ML IV ONE (20:33)
--- NOTE | 2018-11-21 21:10 | NUR ---
Pt moved to bed 07
[2018-11-21 21:15] LABS: HEMATOCRIT 30.9 % (36-48); HEMOGLOBIN 10.1 g/dL (12.0-16.0); MEAN CORPUSCULAR VOLUME 95 fL (79.0-98.0); RED BLOOD CELL COUNT(AUTO) 3.25 MIL/uL (4.2-6.2); WHITE BLOOD COUNT (AUTO) 8.4 K/uL (4.8-10.8)
[2018-11-21 21:16] LABS: ANION GAP 7 (5-15); BASOPHILS # (AUTO) 0.1 K/uL (0.0-0.2); BASOPHILS % (AUTO) 0.7 % (0.0-2.0); CALCIUM 8.4 mg/dL (8.4-11.0); CHLORIDE 103 mmol/L (98-107); CREATININE 1.55 mg/dL (0.55-1.30); GLUCOSE 269 mg/dL (70-99); LYMPHOCYTES # (AUTO) 1.1 K/uL (1.0-5.5); LYMPHOCYTES % (AUTO) 12.5 % (20.5-51.5); MEAN CORPUSCULAR HEMOGLOBIN 31 pg (27-31); MEAN CORPUSCULAR HGB CONC 33 % (32-36); MONOCYTES # (AUTO) 0.5 K/uL (0.0-1.0); MONOCYTES % (AUTO) 6.2 % (1.7-9.3); NEUTROPHILS # (AUTO) 6.8 K/uL (1.8-7.7); NEUTROPHILS % (AUTO) 80.6 % (40.0-70.0); PLATELET COUNT (AUTO) 236 K/uL (130-430); POTASSIUM 3.8 mmol/L (3.5-5.1); RED CELL DISTRIBUTION WIDTH 15.5 % (9.0-15.0); SODIUM SERUM 138 mmol/L (136-145); UREA NITROGEN, BLOOD 34 mg/dL (8-21)
--- NOTE | 2018-11-21 21:18 | NUR ---
Pt AAOx4 presents to ED c/o SOB, dizziness, headache r/t uncontrolled bleeding from recurrent nosebleeds. Rhino rocket was placed "a few days ago" and will have it removed when she has her appointment with ENT next week. Pt states she has recently increased her blood thinner dosage and is experiencing side effects. No other injuries/complaints per pt/noted. Son at bedside. Will continue to monitor.
[2018-11-21 21:19] LABS: INR 1.5 (0.8-1.2); PROTHROMBIN TIME 15.6 SECS (9.5-12.5)
[2018-11-21 21:21] LABS: ALANINE AMINOTRANSFERASE 17 U/L (12-78); ALBUMIN 3.2 g/dL (3.4-4.8); ASPARTATE AMINOTRANSFERASE 12 U/L (10-37); TOTAL BILIRUBIN 0.3 mg/dL (0.0-1.0)
--- NOTE | 2018-11-21 22:01 | NUR ---
Patient given written and verbal discharge instructions and verbalizes understanding. ER MD Blunt discussed with patient the results and treatment provided. Patient in stable condition. ID arm band removed. IV catheter removed intact and dressing applied, no active bleeding. Rx of Afrin Extra Moisturizing spray given. Patient educated on pain management and to follow up with PMD. Pain Scale 0. Opportunity for questions provided and answered. Medication side effect fact sheet provided.
[2018-11-21 22:02] VITALS: BP_SYST 128
== END 2018-11-21 22:02 | disposition home or self-care (01) ==
LOC: SED 16:28
DX: R04.0 Epistaxis (principal); I48.2 Chronic atrial fibrillation; E11.9 Type 2 diabetes mellitus without complications; I10 Essential (primary) hypertension; E78.5 Hyperlipidemia, unspecified; Z90.49 Acquired absence of other specified parts of digestive tract; Z90.89 Acquired absence of other organs; Z86.2 Personal history of diseases of the blood and blood-forming organs and certain disorders involving the immune mechanism; Z88.1 Allergy status to other antibiotic agents; Z88.2 Allergy status to sulfonamides; Z88.5 Allergy status to narcotic agent; Z79.82 Long term (current) use of aspirin; Z79.899 Other long term (current) drug therapy
CPT/HCPCS: 36415; 80053; 85025; 85610-TC; 85730-TC; 99283

== ENCOUNTER 2018-12-24 04:59 | Emergency (ER) | payer OTHER ==
[~2018-12-24] VITALS: Ht 167.6 cm; Wt 74.8 kg
[2018-12-24 04:59] VITALS: BP_SYST 170
[2018-12-24] MEDS ORDERED: TRANEXAMIC ACID 1,000 MG/10 ML VIAL IV ONE (05:15)
[2018-12-24 06:18] LABS: RED BLOOD CELL COUNT(AUTO) 3.74 MIL/uL (4.2-6.2); WHITE BLOOD COUNT (AUTO) 10.2 K/uL (4.8-10.8)
[2018-12-24 06:19] LABS: HEMATOCRIT 34.9 % (36-48); HEMOGLOBIN 11.4 g/dL (12.0-16.0); LYMPHOCYTES % (AUTO) 8.4 % (20.5-51.5); MEAN CORPUSCULAR HEMOGLOBIN 30 pg (27-31); MEAN CORPUSCULAR HGB CONC 33 % (32-36); MEAN CORPUSCULAR VOLUME 93 fL (79.0-98.0); NEUTROPHILS % (AUTO) 86.1 % (40.0-70.0); PLATELET COUNT (AUTO) 260 K/uL (130-430)
[2018-12-24 06:20] LABS: BASOPHILS # (AUTO) 0.1 K/uL (0.0-0.2); BASOPHILS % (AUTO) 0.5 % (0.0-2.0); LYMPHOCYTES # (AUTO) 0.9 K/uL (1.0-5.5); MONOCYTES # (AUTO) 0.5 K/uL (0.0-1.0); NEUTROPHILS # (AUTO) 8.8 K/uL (1.8-7.7)
[2018-12-24 06:40] VITALS: BP_SYST 170
== END 2018-12-24 06:40 | disposition home or self-care (01) ==
LOC: SED 04:59
DX: R04.0 Epistaxis (principal); E11.9 Type 2 diabetes mellitus without complications; I10 Essential (primary) hypertension; I48.91 Unspecified atrial fibrillation; E78.5 Hyperlipidemia, unspecified; Z88.1 Allergy status to other antibiotic agents; Z88.2 Allergy status to sulfonamides; Z88.5 Allergy status to narcotic agent; Z79.82 Long term (current) use of aspirin; Z79.899 Other long term (current) drug therapy
CPT/HCPCS: 30901; 36415; 85025; 99284; J3490; 96374; 99283

== ENCOUNTER 2018-12-26 14:00 | Emergency (ER) | payer OTHER ==
[~2018-12-26] VITALS: Ht 167.6 cm; Wt 74.8 kg
[2018-12-26 14:04] VITALS: BP_SYST 159
[2018-12-26] MEDS ORDERED: LIDOCAINE 4% TOPICAL 50 ML BOTTLE MM ONE (16:17)
[2018-12-26 16:45] VITALS: BP_SYST 138
== END 2018-12-26 16:45 | disposition home or self-care (01) ==
LOC: SED 14:00
DX: R04.0 Epistaxis (principal); I48.91 Unspecified atrial fibrillation; E78.5 Hyperlipidemia, unspecified; E11.9 Type 2 diabetes mellitus without complications; I10 Essential (primary) hypertension; Z88.1 Allergy status to other antibiotic agents; Z88.2 Allergy status to sulfonamides; Z88.5 Allergy status to narcotic agent; Z79.82 Long term (current) use of aspirin; Z79.899 Other long term (current) drug therapy
CPT/HCPCS: 99284

== ENCOUNTER 2018-12-29 14:57 | Emergency (ER) | payer OTHER ==
[~2018-12-29] VITALS: Ht 167.6 cm; Wt 73.5 kg
[2018-12-29 15:06] VITALS: BP_SYST 129
[2018-12-29] MEDS ORDERED: TRANEXAMIC ACID 1,000 MG/10 ML VIAL IV ONE (16:00)
[2018-12-29 17:22] VITALS: BP_SYST 124
== END 2018-12-29 17:22 | disposition home or self-care (01) ==
LOC: SED 14:57
DX: R04.0 Epistaxis (principal); E11.9 Type 2 diabetes mellitus without complications; I10 Essential (primary) hypertension; I48.91 Unspecified atrial fibrillation; E78.5 Hyperlipidemia, unspecified; Z88.2 Allergy status to sulfonamides; Z88.1 Allergy status to other antibiotic agents; Z88.5 Allergy status to narcotic agent; Z79.82 Long term (current) use of aspirin; Z79.899 Other long term (current) drug therapy
CPT/HCPCS: 30901; 99284; J3490

== ENCOUNTER 2019-01-08 05:15 | Emergency (ER) | payer OTHER ==
[~2019-01-08] VITALS: Ht 167.6 cm; Wt 73.5 kg
[2019-01-08 05:15] VITALS: BP_SYST 163
[2019-01-08] MEDS ORDERED: cloNIDine HCL 0.1 MG TABLET PO ONE (06:00)
[2019-01-08 07:15] LABS: BASOPHILS % (AUTO) 0.5 % (0.0-2.0); HEMATOCRIT 32.4 % (36-48); HEMOGLOBIN 10.5 g/dL (12.0-16.0); LYMPHOCYTES # (AUTO) 0.8 K/uL (1.0-5.5); LYMPHOCYTES % (AUTO) 9.9 % (20.5-51.5); MEAN CORPUSCULAR HEMOGLOBIN 30 pg (27-31); MEAN CORPUSCULAR HGB CONC 33 % (32-36); MEAN CORPUSCULAR VOLUME 92 fL (79.0-98.0); MONOCYTES # (AUTO) 0.5 K/uL (0.0-1.0); MONOCYTES % (AUTO) 6.3 % (1.7-9.3); NEUTROPHILS # (AUTO) 6.8 K/uL (1.8-7.7); NEUTROPHILS % (AUTO) 83.3 % (40.0-70.0); PLATELET COUNT (AUTO) 226 K/uL (130-430); RED BLOOD CELL COUNT(AUTO) 3.51 MIL/uL (4.2-6.2); RED CELL DISTRIBUTION WIDTH 16.3 % (9.0-15.0); WHITE BLOOD COUNT (AUTO) 8.2 K/uL (4.8-10.8)
[2019-01-08] MEDS ORDERED: TRANEXAMIC ACID 1,000 MG/10 ML VIAL IV ONE (08:00)
[2019-01-08 09:35] VITALS: BP_SYST 117
== END 2019-01-08 09:35 | disposition home or self-care (01) ==
LOC: SED 05:15
DX: R04.0 Epistaxis (principal); D64.9 Anemia, unspecified; E11.9 Type 2 diabetes mellitus without complications; I10 Essential (primary) hypertension; I48.91 Unspecified atrial fibrillation; E78.5 Hyperlipidemia, unspecified; Z88.1 Allergy status to other antibiotic agents; Z88.2 Allergy status to sulfonamides; Z88.5 Allergy status to narcotic agent; Z79.82 Long term (current) use of aspirin; Z79.899 Other long term (current) drug therapy
CPT/HCPCS: 30901; 36415; 85025; 99284; J3490

== ENCOUNTER 2019-09-17 23:08 | Emergency (ER) | payer OTHER ==
[~2019-09-17] VITALS: Ht 167.6 cm; Wt 76.2 kg
[2019-09-17 23:38] VITALS: BP_SYST 140
--- NOTE | 2019-09-17 23:38 | NUR ---
Pt wheeled to bed 6 for evaluation
--- NOTE | 2019-09-17 23:45 | NUR ---
Pt is an 83 y/o female bib family into the ER with complaints of a hematoma to the abdominal area that she noticed today. Pt has hx of choleysectomy, tonsilectomy, appendectomy, and L knee polypectomy. Pt also has hx of DM, htn and cardiac disorders. Pt states she self injects with insulin. Pt denies any fever, chills, SOB. Will cont to monitor pt.
--- NOTE | 2019-09-18 | NUR ---
ER Dr. Todd at bedside examining patient.
[2019-09-18 00:46] VITALS: BP_SYST 140
--- NOTE | 2019-09-18 00:46 | NUR ---
Patient given written and verbal discharge instructions and verbalizes understanding. ER MD Dr. Todd discussed with patient the results and treatment provided. Patient in stable condition. ID arm band removed. Patient educated on pain management and to follow up with PMD 5-7 days. Pain Scale 2/10, stable on discharge. Opportunity for questions provided and answered. Medication side effect fact sheet provided.
== END 2019-09-18 00:46 | disposition home or self-care (01) ==
LOC: SED 23:08
DX: S30.1XXA Contusion of abdominal wall, initial encounter (principal); I10 Essential (primary) hypertension; E11.9 Type 2 diabetes mellitus without complications; X58.XXXA Exposure to other specified factors, initial encounter; Y93.89 Activity, other specified; Y92.89 Other specified places as the place of occurrence of the external cause; Y99.8 Other external cause status
CPT/HCPCS: 99281

== ENCOUNTER 2022-01-13 18:11 | Inpatient (IN) | payer OTHER ==
[~2022-01-13] VITALS: Ht 165.1 cm; Wt 71.8 kg
[~2022-01-13 18:11] MED LIST changes: -ASPI-1153 PO; +ASPI-1393 PO; -LISI-600 PO; +LISI20TA30 PO; -METF-510 PO; +METF-518 PO
--- NOTE | 2022-01-13 18:17 | NUR ---
Patient to ER bed 1 to gown for evaluation. Side rails up. Report given to CHRIS TESFAYE.
[2022-01-13 18:18] VITALS: BP_SYST 119
--- NOTE | 2022-01-13 18:30 | NUR ---
PT BIB SON FROM HOME C/O HYPOTENSION, DIZZINESS AND NAUSEA. PT REPORTS RECENT HOSPITALIZATION FOR GI BLEED AT [facility]. HAS BEEN HOME FOR 2 DAYS. STATES AT HOME CHECKING SBP WAS 90 AND IS ALSO TAKING HTN MEDS. PT ARRIVES WITH STABLE VS, AMBULATORY, AAOX4. SON AT THE BEDSIDE
--- NOTE | 2022-01-13 18:30 | NUR ---
ER DR. WATERS AT THE BEDSIDE EXAMINING PT
--- NOTE | 2022-01-13 18:44 | NUR ---
Patient transported to radiology via GURNEY, accompanied by STAFF.
--- NOTE | 2022-01-13 19:03 | NUR ---
# 20 gauge angiocath placed to LFA. Use of asceptic technique. Opsite placed over site. Blood return noted. Blood for lab drawn from site. Flushed with 10 cc of normal saline. No evidence of infiltration noted. Patient tolerated well.
[2022-01-13 19:19] LABS: BASOPHILS # (AUTO) 0.1 K/uL (0.0-0.2); BASOPHILS % (AUTO) 1.1 % (0.0-2.0); EOSINOPHILS % (AUTO) 0.1 % (0.0-4.0); HEMATOCRIT 30.7 % (36-48); HEMOGLOBIN 10.5 g/dL (12.0-16.0); LYMPHOCYTES # (AUTO) 1.1 K/uL (1.0-5.5); MEAN CORPUSCULAR HEMOGLOBIN 33 pg (27-31); MEAN CORPUSCULAR HGB CONC 34 % (32-36); MEAN CORPUSCULAR VOLUME 95 fL (79.0-98.0); MONOCYTES # (AUTO) 0.4 K/uL (0.0-1.0); MONOCYTES % (AUTO) 6.8 % (1.7-9.3); NEUTROPHILS # (AUTO) 4.4 K/uL (1.8-7.7); PLATELET COUNT (AUTO) 246 K/uL (130-430); RED BLOOD CELL COUNT(AUTO) 3.22 MIL/uL (4.2-6.2); RED CELL DISTRIBUTION WIDTH 15.2 % (9.0-15.0)
--- NOTE | 2022-01-13 19:24 | NUR ---
REPORT GIVEN TO BRIEN RUIZ FOR CONTINUING CARE
[2022-01-13 19:32] LABS: INR 1.1 (0.8-1.2)
[2022-01-13 19:56] LABS: ACETONE, SERUM NEGATIVE (NEGATIVE)
[2022-01-13 20:00] LABS: ANION GAP 5 (5-15); CALCIUM 9.3 mg/dL (8.4-11.0); CHLORIDE 96 mmol/L (98-107); CREATININE 1.63 mg/dL (0.55-1.30); GLUCOSE 152 mg/dL (70-99); POTASSIUM 3.4 mmol/L (3.5-5.1); SODIUM SERUM 129 mmol/L (136-145); UREA NITROGEN, BLOOD 31 mg/dL (8-21)
[2022-01-13] MEDS ORDERED: NACL 0.9% 1,000 ML IV ONE (20:00)
[2022-01-13 20:05] LABS: ALANINE AMINOTRANSFERASE 23 U/L (12-78); ALBUMIN 3.4 g/dL (3.4-4.8); ASPARTATE AMINOTRANSFERASE 15 U/L (10-37); LACTATE DEHYDROGENASE 132 U/L (81-234); TOTAL BILIRUBIN 0.3 mg/dL (0.0-1.0)
[2022-01-13 20:23] LABS: C-REACTIVE PROTEIN QUANT < 0.2 mg/dL (0-0.5)
[2022-01-13] MEDS ORDERED: MECL-108 PO (20:30)
[2022-01-13 21:35] LABS: BILIRUBIN,URINE NEGATIVE (NEGATIVE); BLOOD, URINE NEGATIVE (NEGATIVE); CLARITY/URINE CLEAR (CLEAR); COLOR,URINE YELLOW (YELLOW); GLUCOSE,URINE NEGATIVE (NEGATIVE); KETONES,URINE NEGATIVE (NEGATIVE); NITRITE, URINE NEGATIVE (NEGATIVE); PROTEIN URINE NEGATIVE (NEGATIVE); UROBILINOGEN,URINE 0.2 (0.2-1.0)
[2022-01-13 21:45] LABS: LEUKOCYTE ESTERASE ,URINE TRACE (NEGATIVE)
[2022-01-13 21:46] LABS: BACTERIA,URINE FEW /HPF (None Seen); MUCUS,URINE None Seen /LPF (None Seen); RBC,URINE 0-3 /HPF (0-3)
--- NOTE | 2022-01-13 22:28 | NUR ---
Admit bed requested Patient will be admitted to care of Dr. CARDENAS Admitted to TELEMETRY unit. Diagnosis NSTEMI Inpatient (Yes or No) YES Orientation concerns or request close to nursing station (Yes or No) NO Covid Status NEGATIVE From Home (Yes or if No enter name of facility) HOME
[2022-01-13] MEDS ORDERED: ACETAMINOPHEN 325 MG TABLET PO PRN (22:30)
[2022-01-13] MEDS ORDERED: ALBUTEROL SULFATE 0.083% 2.5 MG/3 ML VIAL.NEB INH PRN (22:30)
[2022-01-13] MEDS ORDERED: *LOVENOX 1MG/KG Q12H/PHARMACY XX SCH (22:30)
[2022-01-13] MEDS ORDERED: ASPIRIN 81 MG TABLET(ECOTRIN) PO SCH (22:30)
[2022-01-13] MEDS ORDERED: ENOXAPARIN SODIUM 80 MG/0.8 ML SYRINGE SUBCUT SCH (22:39)
--- NOTE | 2022-01-13 23:23 | NUR ---
DIALLO LEWIS [phone]
[2022-01-14] VITALS (7 sets, daily range): BP systolic 116–136
--- NOTE | 2022-01-14 00:47 | NUR ---
CONSULTATION PAGED/CALLED Reason for Consultation: NSTEMI Person Who was Notified: EMY Consulting Physician: Brake Drum Molder Specialty: Ordering Physician:
[2022-01-14 06:44] LABS: ALANINE AMINOTRANSFERASE 24 U/L (12-78); ALBUMIN 3.1 g/dL (3.4-4.8); ANION GAP 10 (5-15); ASPARTATE AMINOTRANSFERASE 18 U/L (10-37); CALCIUM 8.3 mg/dL (8.4-11.0); CHLORIDE 98 mmol/L (98-107); CREATININE 1.25 mg/dL (0.55-1.30); GLUCOSE 146 mg/dL (70-99); SODIUM SERUM 134 mmol/L (136-145); UREA NITROGEN, BLOOD 25 mg/dL (8-21)
[2022-01-14 06:46] LABS: BASOPHILS % (AUTO) 0.6 % (0.0-2.0); HEMATOCRIT 29.4 % (36-48); HEMOGLOBIN 10.1 g/dL (12.0-16.0); LYMPHOCYTES # (AUTO) 1.1 K/uL (1.0-5.5); LYMPHOCYTES % (AUTO) 20.1 % (20.5-51.5); MEAN CORPUSCULAR HEMOGLOBIN 33 pg (27-31); MEAN CORPUSCULAR HGB CONC 34 % (32-36); MEAN CORPUSCULAR VOLUME 95 fL (79.0-98.0); MONOCYTES # (AUTO) 0.5 K/uL (0.0-1.0); MONOCYTES % (AUTO) 9.4 % (1.7-9.3); NEUTROPHILS # (AUTO) 3.7 K/uL (1.8-7.7); NEUTROPHILS % (AUTO) 69.9 % (40.0-70.0); PLATELET COUNT (AUTO) 235 K/uL (130-430); RED CELL DISTRIBUTION WIDTH 14.8 % (9.0-15.0); WHITE BLOOD COUNT (AUTO) 5.2 K/uL (4.8-10.8)
[2022-01-14 07:32] LABS: TOTAL BILIRUBIN 0.7 mg/dL (0.0-1.0)
[2022-01-14] MEDS ORDERED: MAGNESIUM SULFATE 50 ML IV PRN (07:45)
[2022-01-14] MEDS ORDERED: ACETAMINOPHEN 325 MG TABLET PO PRN (07:45)
[2022-01-14] MEDS ORDERED: ONDANSETRON HCL 4 MG/2 ML VIAL IVP PRN (07:45)
[2022-01-14] MEDS ORDERED: MUPIROCIN 2% TOPICAL OINTMENT 22 GM NS PRN (07:45)
[2022-01-14] MEDS ORDERED: LORazepam 2 MG/ML VIAL IVP PRN (07:45)
[2022-01-14] MEDS ORDERED: DEXTROSE 50% JECT 50 ML DISP.SYRIN IVP PRN (07:45)
[2022-01-14] MEDS ORDERED: ZOLPIDEM TARTRATE 5 MG TABLET PO PRN (07:45)
[2022-01-14] MEDS ORDERED: glipiZIDE XL 2.5 MG/TAB (GLUCOTROL XL) PO SCH (08:00)
--- NOTE | 2022-01-14 08:00 | NUR ---
RN NOTES:RECEIVED PATIENT ALERT AND ORIENTED.VERBALLY RESPONSIVE AND COOPERATIVE. NOT IN RESPIRATORY DISRESS. NOT IN PAIN. ON ROOM AIR WITH GOOD SATURATION. VITAL SIGNS ARE GOOD. NO COMPLAIN OF DIZZINESS. WILL CONTINUE TO MONITOR PATIENT.
[2022-01-14] MEDS ORDERED: glipiZIDE XL 2.5 MG/TAB (GLUCOTROL XL) PO ONE (08:15)
--- NOTE | 2022-01-14 08:30 | NUR ---
RN NOTES:RECEIVED CRITICAL LAB RESULT/ TROPONIN OF 271. INFORMED IN PERSON. MD IS MAKING ROUNDS IN THE HOSPITAL. MD TO REVIEW PATIENT'S LABS AND SEE THE PATIENT. NO NEW ORDER GIVEN AT THIS TIME.
[2022-01-14] MEDS ORDERED: LEVOTHYROXINE SODIUM 0.125 MG TABLET PO ONE (08:45)
[2022-01-14] MEDS: MECLIZINE HCL 25 MG TABLET (ANITVERT) PO SCH ×3 (08:49→21:55)
[2022-01-14] MEDS: ASPIRIN 81 MG TABLET(ECOTRIN) PO SCH (08:50)
[2022-01-14] MEDS: DOCUSATE SODIUM 100 MG CAPSULE PO PRN ×2 (08:52→12:18)
[2022-01-14] MEDS: CARVEDILOL 12.5 MG TABLET (COREG) PO SCH ×2 (08:53→21:56)
[2022-01-14] MEDS ORDERED: LEVOTHYROXINE SODIUM 0.088 MG TABLET PO SCH (09:00)
[2022-01-14] MEDS ORDERED: CARVEDILOL 6.25 MG TABLET (COREG) PO SCH (09:00)
[2022-01-14] MEDS: INSULIN LISPRO SLIDING SCALE 100 UNITS/ML VIAL (humaLOG) SUBCUT PRN ×2 (12:23→22:02)
[2022-01-14] MEDS ORDERED: POTASSIUM CHLORIDE 20 MEQ TAB.PRT.SR PO ONE (13:15)
--- NOTE | 2022-01-14 13:15 | NUR ---
RN NOTES: CALLED AND SPOKE WITH . INFORMED HER OF PATIENT'S POTASSIUM OF 3.O. NEW ORDER GIVEN BY .
--- NOTE | 2022-01-14 16:09 | NUR ---
RN NOTES:PATIENT IS DOING FINE. NO COMPLAIN OF CHEST PAIN OR DISCOMFORT. NO SHORTNESS OF BREATH.
[2022-01-14 16:43] LABS: THYROID STIMULATING HORMONE 2.33 uIu/mL (0.36-3.74)
[2022-01-14] MEDS ORDERED: ATORVASTATIN 10 MG TABLET PO SCH (21:00)
[2022-01-14] MEDS ORDERED: LOVASTATIN 20 MG TABLET PO SCH (21:00)
[2022-01-14] MEDS ORDERED: INSULIN GLARGINE 100 UNITS/ML 10 ML VIAL SUBCUT SCH (21:00)
--- NOTE | 2022-01-14 23:10 | NUR ---
RECEIVED TROP LEVEL OF 194. PATIENT'S A/O X4, LYING ON BED IN NO ACUTE DISTRESS AND NO C/O CHEST PAIN OR DISCOMFORT. VSS. BP 127/74; WY 80; RR 18 AFEBRILE, DENIED CHEST PAIN. DR. QURESHI NOTIFIED, NO NEW ORDER RECEIVED. INSTRUCTED PATIENT TO CALL THE NURSE IF FEELING ANY CHEST CHEST PAIN OR DISCOMFORT. PATIENT VERBALIZED UNDERSTANDING.
[2022-01-15 01:04] VITALS: BP_SYST 125
[2022-01-15] MEDS ORDERED: LEVOTHYROXINE SODIUM 0.125 MG TABLET PO SCH (07:00)
[2022-01-15 07:18] LABS: BASOPHILS % (AUTO) 0.5 % (0.0-2.0); HEMATOCRIT 30.5 % (36-48); HEMOGLOBIN 10.3 g/dL (12.0-16.0); LYMPHOCYTES % (AUTO) 18.8 % (20.5-51.5); MEAN CORPUSCULAR HEMOGLOBIN 32 pg (27-31); MEAN CORPUSCULAR HGB CONC 34 % (32-36); MEAN CORPUSCULAR VOLUME 96 fL (79.0-98.0); MONOCYTES # (AUTO) 0.5 K/uL (0.0-1.0); MONOCYTES % (AUTO) 8.7 % (1.7-9.3); NEUTROPHILS # (AUTO) 3.8 K/uL (1.8-7.7); PLATELET COUNT (AUTO) 232 K/uL (130-430); RED BLOOD CELL COUNT(AUTO) 3.18 MIL/uL (4.2-6.2); RED CELL DISTRIBUTION WIDTH 15.4 % (9.0-15.0); WHITE BLOOD COUNT (AUTO) 5.3 K/uL (4.8-10.8)
[2022-01-15 07:49] LABS: ALANINE AMINOTRANSFERASE 24 U/L (12-78); ALBUMIN 3.2 g/dL (3.4-4.8); ANION GAP 8 (5-15); ASPARTATE AMINOTRANSFERASE 22 U/L (10-37); CHLORIDE 101 mmol/L (98-107); CREATININE 1.27 mg/dL (0.55-1.30); GLUCOSE 115 mg/dL (70-99); POTASSIUM 3.7 mmol/L (3.5-5.1); SODIUM SERUM 137 mmol/L (136-145); TOTAL BILIRUBIN 0.6 mg/dL (0.0-1.0); UREA NITROGEN, BLOOD 27 mg/dL (8-21)
[2022-01-15 08:00] VITALS: BP_SYST 150
--- NOTE | 2022-01-15 08:00 | NUR ---
Initial Notes Patient is awake, alert, and in bed. AOx4. Patient states that she feels better, able to ambulate to the bathroom, with walker. Patient states dizziness is better than before. Patient states she feels constipated. MD aware. Safety precautions in place and call light within reach.
[2022-01-15] MEDS: CARVEDILOL 12.5 MG TABLET (COREG) PO SCH (08:34)
[2022-01-15] MEDS: MECLIZINE HCL 25 MG TABLET (ANITVERT) PO SCH ×2 (08:35→14:20)
[2022-01-15] MEDS: ASPIRIN 81 MG TABLET(ECOTRIN) PO SCH (08:35)
[2022-01-15] MEDS ORDERED: MILK OF MAGNESIA 30 ML UDC PO ONE (08:45)
[2022-01-15] MEDS ORDERED: DOCUSATE SODIUM 100 MG CAPSULE PO SCH (09:00)
[2022-01-15] MEDS: INSULIN LISPRO SLIDING SCALE 100 UNITS/ML VIAL (humaLOG) SUBCUT PRN (11:35)
[2022-01-15 12:00] VITALS: BP_SYST 123
--- NOTE | 2022-01-15 12:00 | NUR ---
Notes Patient is in bed, with head of the bed elevated, eating lunch. Patient reports no pain. Safety precautions are in place and call light within reach.
[2022-01-15 13:25] VITALS: BP_SYST 123
[2022-01-15 16:00] VITALS: BP_SYST 126
--- NOTE | 2022-01-15 16:00 | NUR ---
Assisted patient to the bathroom, ambulated with walker, tolerated well. Patient had no BM. Obtained vital signs. No pain or distress noted. No SOB. Patient is back in bed, safety precautions in place and call light in hand.
--- NOTE | 2022-01-15 17:10 | NUR ---
Discharge Note Discharged patient home with home health. Accompanied by son, denies any chest pain or shortness of breath. No dizziness reported. Discharge instructors and med reconciliation discussed with patient and family. Verbalized understanding. No IV present and wristband taken off. All belongings left with patient.
== END 2022-01-15 17:15 | disposition home health service (06) | DRG 280 ==
LOC: SED 18:11 → STU 22:24
PROVIDERS: ADMIT Internal Medicine Hospice and Palliative Medicine; ATTEND Internal Medicine Hospice and Palliative Medicine
DX: I21.4 Non-ST elevation (NSTEMI) myocardial infarction (principal); N17.0 Acute kidney failure with tubular necrosis; E44.1 Mild protein-calorie malnutrition; E87.1 Hypo-osmolality and hyponatremia; I48.20 Chronic atrial fibrillation, unspecified; E78.5 Hyperlipidemia, unspecified; D63.8 Anemia in other chronic diseases classified elsewhere; E03.9 Hypothyroidism, unspecified; K57.90 Diverticulosis of intestine, part unspecified, without perforation or abscess without bleeding; E86.0 Dehydration; N18.9 Chronic kidney disease, unspecified; Z20.822 Contact with and (suspected) exposure to COVID-19; I95.9 Hypotension, unspecified; I12.9 Hypertensive chronic kidney disease with stage 1 through stage 4 chronic kidney disease, or unspecified chronic kidney disease; R42 Dizziness and giddiness; E11.22 Type 2 diabetes mellitus with diabetic chronic kidney disease; Z79.899 Other long term (current) drug therapy; Z79.82 Long term (current) use of aspirin; Z79.4 Long term (current) use of insulin; Z90.49 Acquired absence of other specified parts of digestive tract; Z88.2 Allergy status to sulfonamides; Z88.1 Allergy status to other antibiotic agents; Z88.5 Allergy status to narcotic agent; Z68.26 Body mass index [BMI] 26.0-26.9, adult
CPT/HCPCS: 36415; 70450-TC; 71045; 76376; 80053; 81000; 82009; 82962; 83036; 83605; 83615; 83735; 83880; 84439; 84443; 84484; 85025; 85610-TC; 85730-TC; 86140; 93005; 93306; 96360; 96372; 97116-GP; 99285; G0378; J1650; J1815; J8597

== ENCOUNTER 2022-02-07 15:19 | Inpatient (IN) | payer OTHER ==
[~2022-02-07] VITALS: Ht 167.6 cm; Wt 73.5 kg
[~2022-02-07 15:19] MED LIST changes: +MECL-108 PO
[2022-02-07 15:38] VITALS: BP_SYST 110
[2022-02-07] MEDS ORDERED: MORPHINE 4 MG INJ. 4 MG/ML VIAL IVP ONE (15:50)
[2022-02-07] MEDS ORDERED: NITROGLYCERIN 1 INCH (GM) OINT. TP ONE (15:50)
[2022-02-07 16:10] LABS: BASOPHILS % (AUTO) 0.8 % (0.0-2.0); HEMATOCRIT 33.2 % (36-48); HEMOGLOBIN 11.1 g/dL (12.0-16.0); LYMPHOCYTES # (AUTO) 1.2 K/uL (1.0-5.5); LYMPHOCYTES % (AUTO) 17.9 % (20.5-51.5); MEAN CORPUSCULAR HEMOGLOBIN 32 pg (27-31); MEAN CORPUSCULAR HGB CONC 33 % (32-36); MEAN CORPUSCULAR VOLUME 96 fL (79.0-98.0); MONOCYTES # (AUTO) 0.4 K/uL (0.0-1.0); MONOCYTES % (AUTO) 5.5 % (1.7-9.3); NEUTROPHILS # (AUTO) 4.9 K/uL (1.8-7.7); NEUTROPHILS % (AUTO) 75.8 % (40.0-70.0); PLATELET COUNT (AUTO) 219 K/uL (130-430); RED BLOOD CELL COUNT(AUTO) 3.48 MIL/uL (4.2-6.2); RED CELL DISTRIBUTION WIDTH 15.2 % (9.0-15.0); WHITE BLOOD COUNT (AUTO) 6.5 K/uL (4.8-10.8)
[2022-02-07 16:20] LABS: ANION GAP 8 (5-15); CHLORIDE 100 mmol/L (98-107); CREATININE 1.58 mg/dL (0.55-1.30); GLUCOSE 156 mg/dL (70-99); POTASSIUM 3.8 mmol/L (3.5-5.1); SODIUM SERUM 135 mmol/L (136-145); UREA NITROGEN, BLOOD 37 mg/dL (8-21)
[2022-02-07 16:32] LABS: ALANINE AMINOTRANSFERASE 25 U/L (12-78); ALBUMIN 3.6 g/dL (3.4-4.8); ASPARTATE AMINOTRANSFERASE 20 U/L (10-37); TOTAL BILIRUBIN 0.4 mg/dL (0.0-1.0)
[2022-02-07] MEDS ORDERED: INSU100V9 SQ (16:36)
[2022-02-07] MEDS ORDERED: INSU100V SQ (16:36)
[2022-02-07] MEDS ORDERED: ONDANSETRON HCL 4 MG/2 ML VIAL IVP PRN (20:15)
[2022-02-07] MEDS ORDERED: ALBUTEROL SULFATE 0.083% 2.5 MG/3 ML VIAL.NEB INH PRN (20:15)
[2022-02-07] MEDS ORDERED: HYDROcodone/ACETAMIN 5-325 MG TAB (NORCO/ VICODIN) PO PRN (20:15)
[2022-02-07] MEDS: CARVEDILOL 25 MG TABLET (COREG) PO SCH (23:09)
[2022-02-08] VITALS (8 sets, daily range): BP systolic 121–137
[2022-02-08 07:29] LABS: BASOPHILS % (AUTO) 0.4 % (0.0-2.0); HEMATOCRIT 31.6 % (36-48); HEMOGLOBIN 10.5 g/dL (12.0-16.0); LYMPHOCYTES # (AUTO) 1.1 K/uL (1.0-5.5); LYMPHOCYTES % (AUTO) 18.2 % (20.5-51.5); MEAN CORPUSCULAR HEMOGLOBIN 32 pg (27-31); MEAN CORPUSCULAR HGB CONC 33 % (32-36); MEAN CORPUSCULAR VOLUME 96 fL (79.0-98.0); MONOCYTES # (AUTO) 0.5 K/uL (0.0-1.0); MONOCYTES % (AUTO) 8.3 % (1.7-9.3); NEUTROPHILS # (AUTO) 4.3 K/uL (1.8-7.7); NEUTROPHILS % (AUTO) 73.1 % (40.0-70.0); PLATELET COUNT (AUTO) 208 K/uL (130-430); RED BLOOD CELL COUNT(AUTO) 3.29 MIL/uL (4.2-6.2); WHITE BLOOD COUNT (AUTO) 5.9 K/uL (4.8-10.8)
[2022-02-08] MEDS ORDERED: GLUCOSE (DEXTROSE) ORAL GEL -Adults PO PRN (07:30)
[2022-02-08] MEDS ORDERED: D5W 1,000 ML IV PRN (07:30)
[2022-02-08] MEDS ORDERED: DEXTROSE 50%-WATER 50 ML DISP.SYRIN IVP PRN (07:30)
[2022-02-08 08:32] LABS: ALANINE AMINOTRANSFERASE 21 U/L (12-78); ALBUMIN 3.3 g/dL (3.4-4.8); ANION GAP 6 (5-15); ASPARTATE AMINOTRANSFERASE 19 U/L (10-37); CALCIUM 8.8 mg/dL (8.4-11.0); CHLORIDE 102 mmol/L (98-107); CREATININE 1.43 mg/dL (0.55-1.30); GLUCOSE 199 mg/dL (70-99); POTASSIUM 4.4 mmol/L (3.5-5.1); SODIUM SERUM 138 mmol/L (136-145); TOTAL BILIRUBIN 0.7 mg/dL (0.0-1.0); UREA NITROGEN, BLOOD 33 mg/dL (8-21)
[2022-02-08] MEDS ORDERED: ASPIRIN 81 MG TAB.CHEW PO SCH (09:00)
[2022-02-08] MEDS: LEVOTHYROXINE SODIUM 0.088 MG TABLET PO SCH (10:02)
[2022-02-08] MEDS: INDAPAMIDE 1.25 MG TABLET PO SCH (10:03)
[2022-02-08] MEDS: PANTOPRAZOLE SODIUM 40 MG TAB PO SCH (10:04)
[2022-02-08] MEDS: CARVEDILOL 25 MG TABLET (COREG) PO SCH ×2 (10:04→21:01)
[2022-02-08] MEDS: ASPIRIN 81 MG TABLET(ECOTRIN) PO SCH (10:04)
[2022-02-08] MEDS: INSULIN REGULAR, HUMAN 100 UNITS/ML, 10 ML VIAL (humuLIN R) SUBCUT PRN ×2 (16:55→21:09)
[2022-02-08] MEDS ORDERED: ATORVASTATIN 10 MG TABLET PO SCH (21:00)
[2022-02-09 00:03] VITALS: BP_SYST 135
[2022-02-09] MEDS: LEVOTHYROXINE SODIUM 0.088 MG TABLET PO SCH (07:00)
[2022-02-09] MEDS: INSULIN REGULAR, HUMAN 100 UNITS/ML, 10 ML VIAL (humuLIN R) SUBCUT PRN (07:03)
[2022-02-09] MEDS: PANTOPRAZOLE SODIUM 40 MG TAB PO SCH (10:11)
[2022-02-09] MEDS: ASPIRIN 81 MG TABLET(ECOTRIN) PO SCH (10:12)
[2022-02-09] MEDS: CARVEDILOL 25 MG TABLET (COREG) PO SCH (10:12)
[2022-02-09] MEDS: INDAPAMIDE 1.25 MG TABLET PO SCH (10:16)
== END 2022-02-09 17:09 | disposition home health service (06) | DRG 313 ==
LOC: SED 15:19 → STU 20:05
PROVIDERS: ADMIT Internal Medicine Hospice and Palliative Medicine; ATTEND Internal Medicine Hospice and Palliative Medicine
DX: R07.89 Other chest pain (principal); I48.20 Chronic atrial fibrillation, unspecified; I12.9 Hypertensive chronic kidney disease with stage 1 through stage 4 chronic kidney disease, or unspecified chronic kidney disease; I44.7 Left bundle-branch block, unspecified; I35.0 Nonrheumatic aortic (valve) stenosis; Z20.822 Contact with and (suspected) exposure to COVID-19; E78.5 Hyperlipidemia, unspecified; E11.22 Type 2 diabetes mellitus with diabetic chronic kidney disease; N18.30 Chronic kidney disease, stage 3 unspecified; Z79.4 Long term (current) use of insulin; Z79.899 Other long term (current) drug therapy; Z88.2 Allergy status to sulfonamides; Z88.1 Allergy status to other antibiotic agents; Z88.5 Allergy status to narcotic agent
CPT/HCPCS: 36415; 71045; 80053; 82962; 83880; 84484; 85025; 85379; 93005; 96374; 99291; G0378; J1815; J2270

== ENCOUNTER 2023-06-11 02:10 | Emergency (ER) | payer OTHER ==
[~2023-06-11] VITALS: Ht 165.1 cm; Wt 69.4 kg
[~2023-06-11 02:10] MED LIST changes: +ASPI-1155 PO; -ASPI-1393 PO; -CARV6.2554 PO; +COR12.5 PO; -GLIP2.5T3 PO; +INSU100V SQ; +INSU100V9 SQ; -LACT10SO66 PO; +LEVO125C2 PO; -LEVO88TA5 PO; -LISI20TA30 PO; +LOSA-412 PO; -LOVA20TA2 PO; -MECL-108 PO; -METF-518 PO; +PRED20TA PO; +ZIT250 PO
[2023-06-11 02:20] VITALS: BP_SYST 163; PULSE 68; RESP 19; TEMP 97.9; O2SAT 100
[2023-06-11] MEDS ORDERED: IBUP-1969 PO (06:37)
[2023-06-11] MEDS ORDERED: TRAM50TA2 PO (06:37)
[2023-06-11 06:55] VITALS: BP_SYST 151; PULSE 69; RESP 19; TEMP 98.2; O2SAT 99
== END 2023-06-11 06:56 | disposition home or self-care (01) ==
LOC: SED 02:10
DX: R51.9 Headache, unspecified (principal); I12.9 Hypertensive chronic kidney disease with stage 1 through stage 4 chronic kidney disease, or unspecified chronic kidney disease; E11.22 Type 2 diabetes mellitus with diabetic chronic kidney disease; N18.9 Chronic kidney disease, unspecified; E78.5 Hyperlipidemia, unspecified; Z88.1 Allergy status to other antibiotic agents; Z88.2 Allergy status to sulfonamides; Z88.5 Allergy status to narcotic agent; Z79.899 Other long term (current) drug therapy
CPT/HCPCS: 70450-TC; 76376; 99284

== ENCOUNTER 2024-04-23 13:20 | Inpatient (IN) | payer OTHER ==
[~2024-04-23] VITALS: Ht 160 cm; Wt 73.5 kg
[2024-04-23 13:20] VITALS: BP_SYST 127; PULSE 76; RESP 20; TEMP 97.2; O2SAT 98
[~2024-04-23 13:20] MED LIST changes: -GLUCOMETER FS; -LANCET FS; -PRED20TA PO; +TRAM50TA2 PO; -ZIT250 PO
[2024-04-23] MEDS: NACL 0.9% 1,000 ML IV ONE (13:51)
[2024-04-23] MEDS: ONDANSETRON HCL 4 MG/2 ML VIAL IVP ONE (14:50)
[2024-04-23 14:59] LABS: ALANINE AMINOTRANSFERASE 41 U/L (12-78); ALBUMIN 2.9 g/dL (3.4-4.8); ANION GAP 9 (5-15); ASPARTATE AMINOTRANSFERASE 48 U/L (10-37); BILIRUBIN,DIRECT 0.2 mg/dL (0.0-0.3); CARBON DIOXIDE 26 mmol/L (23-29); CHLORIDE 105 mmol/L (98-107); CREATININE 0.74 mg/dL (0.55-1.30); GLUCOSE 99 mg/dL (74-106); LIPASE 82 U/L (16-77); POTASSIUM 3.5 mmol/L (3.5-5.1); SODIUM SERUM 140 mmol/L (136-145); TOTAL BILIRUBIN 0.4 mg/dL (0.0-1.0); TOTAL PROTEIN, SERUM 6.7 g/dL (6.4-8.3); UREA NITROGEN, BLOOD 3 mg/dL (8-21)
[2024-04-23 15:07] LABS: BASOPHILS % (AUTO) 0.9 % (0.0-2.0); EOSINOPHILS % (AUTO) 0.5 % (0.0-4.0); HEMATOCRIT 35.6 % (36-48); HEMOGLOBIN 11.7 g/dL (12.0-16.0); LYMPHOCYTES # (AUTO) 0.7 K/uL (1.0-5.5); LYMPHOCYTES % (AUTO) 13.9 % (20.5-51.5); MEAN CORPUSCULAR HEMOGLOBIN 32 pg (27-31); MEAN CORPUSCULAR HGB CONC 33 % (32-36); MEAN CORPUSCULAR VOLUME 99 fL (79.0-98.0); MONOCYTES # (AUTO) 0.4 K/uL (0.0-1.0); MONOCYTES % (AUTO) 7.2 % (1.7-9.3); NEUTROPHILS # (AUTO) 4.1 K/uL (1.8-7.7); NEUTROPHILS % (AUTO) 77.5 % (40.0-70.0); PLATELET COUNT (AUTO) 169 K/uL (130-430); RED CELL DISTRIBUTION WIDTH 15.2 % (9.0-15.0); WHITE BLOOD COUNT (AUTO) 5.2 K/uL (4.8-10.8)
[2024-04-23 15:51] LABS: INR 1.2 (0.8-1.2); PROTHROMBIN TIME 12.6 SECS (9.5-12.5)
[2024-04-23] MEDS: ASPIRIN 325 MG TABLET PO ONE (15:52)
[2024-04-23] MEDS: ENOXAPARIN SODIUM 80 MG/0.8 ML SYRINGE SUBCUT ONE (16:12)
[2024-04-23] MEDS: MORPHINE 4 MG INJ. 4 MG/ML VIAL IVP ONE (19:00)
[2024-04-23] MEDS: NITROGLYCERIN 0.4 MG TAB.SUBL SL ONE (19:00)
[2024-04-23 20:33] LABS: INR 1.2 (0.8-1.2); PROTHROMBIN TIME 12.5 SECS (9.5-12.5)
[2024-04-23 21:24] VITALS: BP_SYST 147; PULSE 93; RESP 18; TEMP 96.8
[2024-04-23 21:29] VITALS: O2SAT 100
[2024-04-23 21:40] VITALS: BP_SYST 147; PULSE 93; RESP 18; TEMP 96.8; O2SAT 99
[2024-04-23 22:08] VITALS: BP_SYST 120; PULSE 100; RESP 18; TEMP 97.1
[2024-04-24] VITALS (7 sets, daily range): BP systolic 133–148; PULSE 70–88; RESP 16–20; TEMP 97–98.4; O2SAT 95–100
[2024-04-24] MEDS: CARVEDILOL 6.25 MG TABLET (COREG) PO SCH (00:01)
[2024-04-24] MEDS: INSULIN REGULAR, HUMAN 100 UNITS/ML, 3 ML VIAL (humuLIN R) SUBCUT PRN (00:08)
[2024-04-24] MEDS: INDAPAMIDE 1.25 MG TABLET PO SCH (09:00)
[2024-04-24] MEDS ORDERED: CARVEDILOL 12.5 MG TABLET (COREG) PO SCH (09:00)
[2024-04-24] MEDS: CARVEDILOL 12.5 MG TABLET (COREG) ONE (10:44)
[2024-04-24 11:19] LABS: THYROID STIMULATING HORMONE 1.5 uIu/mL (0.34-4.82)
[2024-04-24] MEDS: ASPIRIN 81 MG TAB.CHEW PO ONE (11:28)
[2024-04-24] MEDS: LOSARTAN POTASSIUM 25 MG TABLET PO SCH (11:29)
[2024-04-24] MEDS ORDERED: INSULIN Lispro 100 UNITS/ML, 3 ML VIAL (humaLOG) SQ SCH (17:00)
[2024-04-24] MEDS: MECLIZINE HCL 25 MG TABLET (ANITVERT) PO ONE (18:34)
[2024-04-24] MEDS ORDERED: INSULIN GLARGINE 100 UNITS/ML, 10 ML VIAL SQ SCH (21:00)
[2024-04-24] MEDS: MECLIZINE HCL 25 MG TABLET (ANITVERT) PO SCH (22:05)
[2024-04-24] MEDS: CARVEDILOL 12.5 MG TABLET (COREG) PO SCH (22:05)
[2024-04-25] VITALS (7 sets, daily range): BP systolic 108–137; PULSE 74–91; RESP 16–18; TEMP 97–97.5; O2SAT 93–94
[2024-04-25] MEDS: LEVOTHYROXINE SODIUM 0.125 MG TABLET PO SCH (06:14)
[2024-04-25] MEDS: ASPIRIN 81 MG TAB.CHEW PO SCH (08:39)
== END 2024-04-25 13:10 | disposition home health service (06) | DRG 149 ==
LOC: SED 13:20 → STU 15:28
PROVIDERS: ADMIT Specialist; ATTEND Specialist
DX: R42 Dizziness and giddiness (principal); I48.91 Unspecified atrial fibrillation; E11.22 Type 2 diabetes mellitus with diabetic chronic kidney disease; I12.9 Hypertensive chronic kidney disease with stage 1 through stage 4 chronic kidney disease, or unspecified chronic kidney disease; F41.9 Anxiety disorder, unspecified; N18.9 Chronic kidney disease, unspecified; Z79.4 Long term (current) use of insulin; Z88.8 Allergy status to other drugs, medicaments and biological substances; Z88.2 Allergy status to sulfonamides; Z88.5 Allergy status to narcotic agent; Z79.82 Long term (current) use of aspirin; Z79.899 Other long term (current) drug therapy
CPT/HCPCS: 36415; 80048; 80076; 82948; 83690; 84443; 84484; 85025; 85610; 85730; 93005; 96374; 99285; G0378; J1650; J2405; J8597